=== PATIENT | female | born 1975 ===

== ENCOUNTER → 2023-05-08 09:12 | Outpatient (CLI) | payer OTHER, SELFPAY ==
--- NOTE | 2023-05-08 09:16 | DI.CT.S_ITS ---
PROCEDURE: CT MASTOID TEMPORAL INDICATIONS: HEARING LOSS, MIXED; CONCERN FOR OTOSCLEROSIS COMPARISON: None. TECHNIQUE: Noncontrast 0.6 mm thick axial sections acquired through each temporal bone separately. Coronal images are reformatted. FINDINGS: Image quality: Excellent. RIGHT: External auditory canal: Canal has a normal appearance. Middle ear: The middle ear structures, including the ossicles and tympanic membrane, appear normal. No abnormal fluid or soft tissue density. Inner ear: Inner ear is normally formed and appears unremarkable. Facial nerve appears normal throughout is course. Mastoids: Mastoid air cells are clear. LEFT: External auditory canal: Canal has a normal appearance. Middle ear: The middle ear structures, including the ossicles and tympanic membrane, appear normal. No abnormal fluid or soft tissue density. Inner ear: Inner ear is normally formed and appears unremarkable. Facial nerve appears normal throughout its course. Mastoids: Mastoid air cells are clear. MISCELLANEOUS: Visualized surrounding bones appear unremarkable. Visualized intracranial structures, including the cerebellopontine angle cisterns, appear normal. IMPRESSION: Unremarkable exam. No visualized otosclerosis. Dictated by: Chelsea Albarran M.D. on 05/08/2023 at 13:22 Approved by: Chelsea Albarran M.D. on 05/08/2023 at 13:24
== END ==
PROVIDERS: Referring Provider Otolaryngology; Visit Provider Otolaryngology
DX: H90.71 Mixed conductive and sensorineural hearing loss, unilateral, right ear, with unrestricted hearing on the contralateral side (principal)
CPT/HCPCS: 70480